=== PATIENT | female | born 1955 | race Caucasian/White ===

== ENCOUNTER 2016-09-12 07:28 | Day surgery (SDC) | payer BC ==
[2016-09-08 12:55] VITALS: BMI 22.2
[~2016-09-12 07:28] MED LIST: LACTATED RINGERS 1,000 ML IV SCH; LIDOCAINE 1% 20 ML VIAL (10MG/ML) FOR IV START INTRADERMA PRN
[2016-09-12 07:52] VITALS: TEMP 97.4
[2016-09-12] MEDS ORDERED: LIDOCAINE 1% 20 ML VIAL (10MG/ML) FOR IV START INTRADERMA ONE (08:03)
[2016-09-12] MEDS ORDERED: LIDOCAINE 1% INJ 10MG/ML (20 ML MDV) ONE (08:15)
[2016-09-12] MEDS ORDERED: PROPOFOL 10 MG/ML 20 ML VIAL IV ONE (08:15)
--- NOTE | 2016-09-12 08:42 | P.PCN ---
Date of Procedure: 09/12/16 Preoperative Diagnosis: Crampy abdominal pain , loose stools Postoperative Diagnosis: Tortuous redundant bowel, sigmoid diverticuli, beginning of internal hemorrhoids Procedure(s) Performed: Colonoscopy Anesthesia: MAC Surgeon: Vane Allred Estimated Blood Loss (ml): 0 IV fluids (ml): 650 Pathology: none sent Condition: stable Disposition: PACU Indications for Procedure: Crampy abdominal pain with some loose stools Operative Findings: Extremely tortuous redundant bowel, deep diverticuli, internal hemorrhoids Description of Procedure: Patient was taken to the endoscopy suite and following sedation rectal exam was performed. Patient was noted to have good sphincter tone no masses. Colonoscope was passed through the anus into the rectum. Was passed into the sigmoid colon which was was extremely tortuous and redundant. Was then passed up to the splenic flexure transverse colon hepatic flexure right colon down to the area of the cecum. Circumferential observation mucosa in the cecum did not reveal any inflammation or lesions of concern. Stool of the the area was irrigated and aspirated for culture stable obtained. The scope was withdrawn no lesions of concern were noted in the right colon. No lesions of concern in the transverse colon. The Bowel was noted to be very tortuous and redundant particularly in the sigmoid colon diverticuli were identified. The scope was brought down to the rectum where it was retroflexed internal hemorrhoids identified. Approximately 6 minutes were taken to withdraw the scope from the cecum to the rectum. Impression/plan: 1. Tortuous redundant bowel 2. Diverticuli 3. Internal hemorrhoids Plan: 1. Await results of stool cultures 2. Conservative management of diverticuli and internal hemorrhoids 3. Most likely repeat scope 7-10 years
--- NOTE | 2016-09-12 08:43 | P.DS ---
Providers Attending physician: Vane Allred Primary care physician: Danny Pineda Plan - Discharge Summary Discharge Medication List Atorvastatin [Lipitor] 20 mg PO HS 09/08/16 [History] Cholecalciferol [Vitamin D3] 2,000 unit PO DAILY 09/08/16 [History] Citalopram Hydrobromide [CeleXA] 40 mg PO DAILY 09/08/16 [History] Levothyroxine Sodium [Synthroid] 75 mcg PO DAILY 09/08/16 [History] Follow up Appointment(s)/Referral(s): Vane Allred MD [STAFF PHYSICIAN] - 1 Week Activity/Diet/Wound Care/Special Instructions: Diverticular diet Discharge Disposition: HOME SELF-CARE
[2016-09-12 09:28] VITALS: RESP 16
[2016-09-12 09:45] VITALS: BP 125/68; PULSE 94
== END 2016-09-12 10:01 | disposition home or self-care (01) ==
LOC: ORWHC2ENDO 07:28
PROVIDERS: ATTEND Surgery
DX: K57.30 Diverticulosis of large intestine without perforation or abscess without bleeding (principal); Q43.8 Other specified congenital malformations of intestine; K64.8 Other hemorrhoids; E78.5 Hyperlipidemia, unspecified; E07.9 Disorder of thyroid, unspecified; F32.9 Major depressive disorder, single episode, unspecified; Z79.899 Other long term (current) drug therapy; Z88.0 Allergy status to penicillin
CPT/HCPCS: 87045; 87046; 45378; J2001; J2704; 99153

== ENCOUNTER → 2017-04-06 | Outpatient (CLI) | payer BC ==
--- NOTE | 2017-04-09 07:26 | MM ---
Reason for exam: additional evaluation requested from prior study. Last mammogram was performed 1 year and 4 months ago. History: Patient is postmenopausal and had first child at age 32. Family history of breast cancer in sister at age 60. Took estrogen for 5 years beginning at age 45. Physical Findings: Nurse did not find any significant physical abnormalities on exam. MG 3D Diag Mammo W/Cad CONNOR Bilateral CC and MLO view(s) were taken. Prior study comparison: November 29, 2015, left breast MG 3d work up w/cad LT. November 29, 2015, left breast US breast workup limited LT. November 15, 2015, bilateral MG screening mammo w CAD. The breast tissue is heterogeneously dense. This may lower the sensitivity of mammography. Finding: There are typically benign round calcifications in both breasts. There is a chronic nodularity in the left breast. There is no discrete abnormality. These results were verbally communicated with the patient and result sheet given to the patient on 04/06/17. ASSESSMENT: Benign, BI-RAD 2 RECOMMENDATION: Routine screening mammogram of both breasts in 1 year.
== END | disposition home or self-care (01) ==
LOC: RADMAMWWP 10:26
PROVIDERS: ATTEND Family Medicine
DX: N60.11 Diffuse cystic mastopathy of right breast (principal)
CPT/HCPCS: G0204; G0279

== ENCOUNTER 2017-10-29 14:41 | Emergency (ER) | payer BC ==
[2017-10-29 15:00] VITALS: TEMP 98.2
[2017-10-29 15:53] LABS: Basophils # (A) 0.1 k/uL (0-0.2); Basophils % (A) 1 %; Eosinophils # (A) 0.1 k/uL (0-0.7); Eosinophils % (A) 1 %; HCT 43.9 % (34.0-46.0); Lymphocytes # (A) 1.2 k/uL (1.0-4.8); Lymphocytes % (A) 15 %; MCH 31.2 pg (25.0-35.0); MCHC 34.1 g/dL (31.0-37.0); MCV 91.6 fL (80.0-100.0); Mean Platelet Volume 7.2; Monocytes # (A) 0.2 k/uL (0-1.0); Monocytes % (A) 3 %; Neutrophils # (A) 6.1 k/uL (1.3-7.7); Neutrophils % (A) 79 %; Platelet Count 287 k/uL (150-450); RBC 4.79 m/uL (3.80-5.40); RDW 12.5 % (11.5-15.5); WBC 7.7 k/uL (3.8-10.6)
[2017-10-29 16:02] LABS: ALT 21 U/L (9-52); AST 20 U/L (14-36); Albumin 4.6 g/dL (3.5-5.0); Alkaline Phosphatase 96 U/L (38-126); Anion Gap 11 mmol/L; Blood Urea Nitrogen 17 mg/dL (7-17); Calcium 9.8 mg/dL (8.4-10.2); Carbon Dioxide 27 mmol/L (22-30); Chloride 105 mmol/L (98-107); Glucose 124 mg/dL (74-99); Potassium 4.9 mmol/L (3.5-5.1); Sodium 143 mmol/L (137-145); Total Bilirubin 0.3 mg/dL (0.2-1.3); Total Protein 7.6 g/dL (6.3-8.2)
[2017-10-29] MEDS ORDERED: MECLIZINE 12.5 MG TAB PO STA (16:29)
[2017-10-29] MEDS ORDERED: SODIUM CHLORIDE 0.9% 1,000 ML IV STA (16:29)
--- NOTE | 2017-10-29 16:38 | ED ---
General Adult HPI - General Chief complaint: Dizziness Stated complaint: Dizziness Time Seen by Provider: 10/29/17 16:11 Source: patient, RN notes reviewed Mode of arrival: ambulatory Limitations: no limitations - History of Present Illness Initial comments: 62-year-old female presents to the emergency department with a chief complaint of dizziness. She states that she got a couch and she felt very dizzy like the world spinning around her. She states she does sit down group she got up again and felt the same way. She states that she does not feel like she is going to pass out She felt like she was wobbly. She states if she sits still she can get it to calm down but then it will go worse. There is been some nausea without vomiting. She denies any chest pain or shortness of breath. She denies any falls traumas or injuries. Family history of this in the past. They were concerned due to her continued dizziness. Was not improving so she thought that she should be seen.Patient denies any recent fever, chills, shortness of breath, chest pain, back pain, abdominal pain, nausea vomiting, numbness or tingling, dysuria or hematuria, constipation or diarrhea, headaches or visual changes, or any other current symptoms. - Related Data Home Medications Medication Instructions Recorded Confirmed Atorvastatin [Lipitor] 20 mg PO HS 09/08/16 10/29/17 Cholecalciferol [Vitamin D3] 2,000 unit PO DAILY 09/08/16 10/29/17 Citalopram Hydrobromide [CeleXA] 40 mg PO DAILY 09/08/16 10/29/17 Levothyroxine Sodium [Synthroid] 75 mcg PO DAILY 09/08/16 10/29/17 Previous Rx's Medication Instructions Recorded Meclizine [Antivert] 12.5 mg PO Q6H #20 tablet 10/29/17 Sulfamethox-Tmp 800-160Mg [Bactrim 1 each PO Q12HR #14 tab 10/29/17 DS 800-160 mg] Allergies Allergy/AdvReac Type Severity Reaction Status Date / Time amoxicillin [From Augmentin] Allergy Rash/Hives Verified 10/29/17 16:33 clavulanic acid Allergy Rash/Hives Verified 10/29/17 16:33 [From Augmentin] Review of Systems ROS Statement: Those systems with pertinent positive or pertinent negative responses have been documented in the HPI. ROS Other: All systems not noted in ROS Statement are negative. Past Medical History Past Medical History: Hyperlipidemia, Thyroid Disorder History of Any Multi-Drug Resistant Organisms: None Reported Past Surgical History: Section Additional Past Surgical History / Comment(s): colonoscopy Past Anesthesia/Blood Transfusion Reactions: No Reported Reaction Past Psychological History: Depression Smoking Status: Current every day smoker Past Alcohol Use History: Rare Past Drug Use History: None Reported - Past Family History Sister(s) Family Medical History: Cancer General Exam Limitations: no limitations General appearance: alert, in no apparent distress ENT exam: Present: normal exam, mucous membranes moist Neck exam: Present: normal inspection. Absent: tenderness, meningismus, lymphadenopathy Respiratory exam: Present: normal lung sounds bilaterally. Absent: respiratory distress, wheezes, rales, rhonchi, stridor Cardiovascular Exam: Present: regular rate, normal rhythm, normal heart sounds. Absent: systolic murmur, diastolic murmur, rubs, gallop, clicks Back exam: Present: normal inspection Neurological exam: Present: alert, oriented X3, CN II-XII intact, reflexes normal, other (No ataxia, negative pronator drift). Absent: motor sensory deficit Psychiatric exam: Present: normal affect, normal mood Skin exam: Present: warm, dry, intact, normal color. Absent: rash Course Vital Signs 10/29/17 10/29/17 10/29/17 14:58 17:03 17:14 Temperature 98.2 F Pulse Rate 69 78 Pulse Rate [ 86 Rn Outpatient Surgery ] Respiratory 18 16 18 Rate Blood Pressure 93/60 132/70 Blood Pressure 129/72 [Sitting] Blood Pressure 146/79 [Standing] Blood Pressure 132/73 [Supine] O2 Sat by Pulse 97 97 Oximetry Medical Decision Making - Medical Decision Making 62-year-old female presents for dizziness. At this time due to the patient's vertigo symptoms along with a pansinusitis on CT most likely due due to vertigo. We will continue patient on Antivert as well as start her on antibiotic. We did discuss follow-up with her doctor we discussed return parameters all questions. Patient stated that she understood and she is agreement this plan. All questions have been answered. She will be discharged. - Lab Data Result diagrams: 10/29/17 15:35 10/29/17 15:35 Lab Results 10/29/17 10/29/1710/29/18 Range/Units 15:35 15:35 15:35 WBC 7.7 (3.8-10.6) k/uL RBC 4.79 (3.80-5.40) m/uL Hgb 15.0 (11.4-16.0) gm/dL Hct 43.9 (34.0-46.0) % MCV 91.6 (80.0-100.0) fL MCH 31.2 (25.0-35.0) pg MCHC 34.1 (31.0-37.0) g/dL RDW 12.5 (11.5-15.5) % Plt Count 287 (150-450) k/uL Neutrophils % 79 % Lymphocytes % 15 % Monocytes % 3 % Eosinophils % 1 % Basophils % 1 % Neutrophils # 6.1 (1.3-7.7) k/uL Lymphocytes # 1.2 (1.0-4.8) k/uL Monocytes # 0.2 (0-1.0) k/uL Eosinophils # 0.1 (0-0.7) k/uL Basophils # 0.1 (0-0.2) k/uL Sodium 143 (137-145) mmol/L Potassium 4.9 (3.5-5.1) mmol/L Chloride 105 (98-107) mmol/L Carbon Dioxide 27 (22-30) mmol/L Anion Gap 11 mmol/L BUN 17 (7-17) mg/dL Creatinine 0.80 (0.52-1.04) mg/dL Est GFR (MDRD) Af Amer >60 (>60 ml/min/1.73 sqM) Est GFR (MDRD) Non-Af >60 (>60 ml/min/1.73 sqM) Glucose 124 H (74-99) mg/dL Calcium 9.8 (8.4-10.2) mg/dL Total Bilirubin 0.3 (0.2-1.3) mg/dL AST 20 (14-36) U/L ALT 21 (9-52) U/L Alkaline Phosphatase 96 (38-126) U/L Troponin I <0.012 (0.000-0.034) ng/mL Total Protein 7.6 (6.3-8.2) g/dL Albumin 4.6 (3.5-5.0) g/dL Urine Color Urine Appearance (Clear) Urine pH (5.0-8.0) Ur Specific [place] (1.001-1.035) Urine Protein (Negative) Urine Glucose (UA) (Negative) Urine Ketones (Negative) Urine Blood (Negative) Urine Nitrite (Negative) Urine Bilirubin (Negative) Urine Urobilinogen (<2.0) mg/dL Ur Leukocyte Esterase (Negative) Urine RBC (0-5) /hpf Urine WBC (0-5) /hpf Ur Squamous Epith Cells (0-4) /hpf Amorphous Sediment (None) /hpf Hyaline Casts (0-2) /lpf Urine Mucus (None) /hpf 10/29/17 Range/Units 18:00 WBC (3.8-10.6) k/uL RBC (3.80-5.40) m/uL Hgb (11.4-16.0) gm/dL Hct (34.0-46.0) % MCV (80.0-100.0) fL MCH (25.0-35.0) pg MCHC (31.0-37.0) g/dL RDW (11.5-15.5) % Plt Count (150-450) k/uL Neutrophils % % Lymphocytes % % Monocytes % % Eosinophils % % Basophils % % Neutrophils # (1.3-7.7) k/uL Lymphocytes # (1.0-4.8) k/uL Monocytes # (0-1.0) k/uL Eosinophils # (0-0.7) k/uL Basophils # (0-0.2) k/uL Sodium (137-145) mmol/L Potassium (3.5-5.1) mmol/L Chloride (98-107) mmol/L Carbon Dioxide (22-30) mmol/L Anion Gap mmol/L BUN (7-17) mg/dL Creatinine (0.52-1.04) mg/dL Est GFR (MDRD) Af Amer (>60 ml/min/1.73 sqM) Est GFR (MDRD) Non-Af (>60 ml/min/1.73 sqM) Glucose (74-99) mg/dL Calcium (8.4-10.2) mg/dL Total Bilirubin (0.2-1.3) mg/dL AST (14-36) U/L ALT (9-52) U/L Alkaline Phosphatase (38-126) U/L Troponin I (0.000-0.034) ng/mL Total Protein (6.3-8.2) g/dL Albumin (3.5-5.0) g/dL Urine Color Yellow Urine Appearance Clear (Clear) Urine pH 7.0 (5.0-8.0) Ur Specific [place] 1.024 (1.001-1.035) Urine Protein Trace H (Negative) Urine Glucose (UA) Negative (Negative) Urine Ketones Negative (Negative) Urine Blood Negative (Negative) Urine Nitrite Negative (Negative) Urine Bilirubin Negative (Negative) Urine Urobilinogen 4.0 (<2.0) mg/dL Ur Leukocyte Esterase Trace H (Negative) Urine RBC 2 (0-5) /hpf Urine WBC 6 H (0-5) /hpf Ur Squamous Epith Cells 2 (0-4) /hpf Amorphous Sediment Rare H (None) /hpf Hyaline Casts 1 (0-2) /lpf Urine Mucus Few H (None) /hpf - Radiology Data Radiology results: report reviewed, image reviewed Disposition Clinical Impression: Acute pansinusitis, Vertigo Disposition: HOME SELF-CARE Condition: Stable Instructions: Vertigo (ED), Sinusitis (ED) Additional Instructions: Please use medication as discussed. Please follow up with family doctor if symptoms have not improved over the next two days. Please return to the emergency room if your symptoms increase or worsen or for any other concerns. Prescriptions: Meclizine [Antivert] 12.5 mg PO Q6H #20 tablet Sulfamethox-Tmp 800-160Mg [Bactrim DS 800-160 mg] 1 each PO Q12HR #14 tab Referrals: Danny Pineda MD [Primary Care Provider] - 1-2 days Time of Disposition: 18:32
--- NOTE | 2017-10-29 17:05 | CT ---
EXAMINATION TYPE: CT brain wo con DATE OF EXAM: 10/29/2017 COMPARISON: NONE HISTORY: Dizziness and headache for [address] DLP: 945.5 mGycm Automated exposure control for dose reduction was used. TECHNIQUE: CT scan of the head is performed without contrast. FINDINGS: There is no acute intracranial hemorrhage, mass effect, or midline shift identified. Dystrophic basal ganglia calcifications are seen on the right. The ventricles and sulci are symmetrically prominent compatible with age-related volume loss. The globes are intact. Mild mucosal thickening is seen withi n the sphenoid, maxillary, ethmoid, and frontal sinuses. Mastoid air cells are well aerated. Secretio ns are noted within the posterior nasopharynx. Incidental note is made of a partially empty sella tur cica. IMPRESSION: 1. No acute intracranial process. 2. Mild pansinusitis.
--- NOTE | 2017-10-29 17:07 | XR ---
EXAMINATION TYPE: XR chest 2V DATE OF EXAM: 10/29/2017 COMPARISON: 03/07/2013 HISTORY: Shortness of breath TECHNIQUE: Frontal and lateral views of the chest are obtained. FINDINGS: There is no focal air space opacity, pleural effusion, or pneumothorax seen. There is pul monary hyperinflation and flattening of the diaphragms compatible with underlying COPD. The cardiac s ilhouette size is within normal limits. The osseous structures are intact. Copious soft tissues par tially obscure the lung bases on the frontal view. IMPRESSION: No acute cardiopulmonary process. Radiographic sequela of COPD.
[2017-10-29 18:21] LABS: Amorphous Sediment,Urine Rare /hpf; Appearance,Urine Clear (Clear); Bilirubin,Urine Negative (Negative); Blood,Urine Negative (Negative); Color,Urine Yellow; Glucose,Urine (UA) Negative (Negative); Hyaline Casts,Urine 1 /lpf (0-2); Ketones,Urine Negative (Negative); Leukocyte Esterase,Urine Trace (Negative); Mucus,Urine Few /hpf; Protein,Urine Trace (Negative); RBC,Urine 2 /hpf (0-5); Specific Gravity,Urine 1.024 (1.001-1.035); Squamous Epithelial Cell,Urine 2 /hpf (0-4); WBC,Urine 6 /hpf (0-5)
[2017-10-29 19:06] VITALS: BP 153/72; PULSE 87; RESP 20
== END 2017-10-29 19:06 | disposition home or self-care (01) ==
LOC: EC 14:41
DX: J01.40 Acute pansinusitis, unspecified (principal); R42 Dizziness and giddiness; R11.0 Nausea; E78.5 Hyperlipidemia, unspecified; E07.9 Disorder of thyroid, unspecified; F32.9 Major depressive disorder, single episode, unspecified; F17.200 Nicotine dependence, unspecified, uncomplicated; Z79.899 Other long term (current) drug therapy; Z88.0 Allergy status to penicillin
CPT/HCPCS: 36415; 70450; 71046; 80053; 81001; 84484; 85025; 93005; 96360; 96361; 99284

== ENCOUNTER → 2018-04-25 | Outpatient (CLI) | payer BC, OTHER ==
--- NOTE | 2018-04-25 14:42 | MM ---
Reason for exam: screening (asymptomatic). Last mammogram was performed 1 year and 1 month ago. History: Patient is postmenopausal and had first child at age 32. Family history of breast cancer in sister at age 60. Took estrogen for 5 years beginning at age 45. Physical Findings: A clinical breast exam by your physician is recommended on an annual basis and results should be correlated with mammographic findings. MG 3D Screening Mammo W/Cad Bilateral CC and MLO view(s) were taken. Prior study comparison: April 06, 2017, bilateral MG 3d diag mammo w/cad CONNOR. November 29, 2015, left breast MG 3d work up w/cad LT. The breast tissue is heterogeneously dense. This may lower the sensitivity of mammography. There is chronic nodularity in the left breast. Posterior and central nodularity left MLO view appears more defined and incompletely disperses on 3D. ASSESSMENT: Incomplete: need additional imaging evaluation, BI-RAD 0 RECOMMENDATION: Special view mammogram of the left breast. If lesion persists on supplemental views, image directed ultrasound is recommended. [facility] will attempt to contact patient to return for supplemental views and ultrasound if indicated.
== END | disposition home or self-care (01) ==
LOC: RADMAMWWP 09:53
PROVIDERS: ATTEND Family Medicine
DX: Z12.31 Encounter for screening mammogram for malignant neoplasm of breast (principal)
CPT/HCPCS: 77063; 77067

== ENCOUNTER → 2018-05-08 | Outpatient (CLI) | payer BC, OTHER ==
--- NOTE | 2018-05-08 09:02 | MM ---
Reason for exam: additional evaluation requested from abnormal screening. Last mammogram was performed less than 1 month ago. History: Patient is postmenopausal and had first child at age 32. Family history of breast cancer in sister at age 60. Took estrogen for 5 years beginning at age 45. Physical Findings: Nurse did not find any significant physical abnormalities on exam. MG 3D Work Up W/Cad LT Spot compression CC, spot compression MLO, and ML view(s) were taken of the left breast. Prior study comparison: April 25, 2018, bilateral MG 3d screening mammo w/cad. April 06, 2017, bilateral MG 3d diag mammo w/cad CONNOR. The breast tissue is heterogeneously dense. This may lower the sensitivity of mammography. The questioned central posterior nodularity becomes less defined on additional view with an appearance similar to older priors. A single area of nodularity which becomes apparent on the lateral view is chronic, stable from 2012. 6 month follow up recommended. These results were verbally communicated with the patient and result sheet given to the patient on 05/08/18. ASSESSMENT: Probably benign, BI-RAD 3 RECOMMENDATION: Follow-up diagnostic mammogram of the left breast in 6 months.
== END | disposition home or self-care (01) ==
LOC: RADMAMWWP 07:00
PROVIDERS: ATTEND Family Medicine
DX: R92.8 Other abnormal and inconclusive findings on diagnostic imaging of breast (principal)
CPT/HCPCS: 77061; 77065

== ENCOUNTER → 2018-05-24 | Outpatient (CLI) | payer BC, OTHER ==
[2018-05-24 09:41] VITALS: BP 96/59; PULSE 77; RESP 14; TEMP 98.3; BMI 22.4
--- NOTE | 2018-05-24 10:03 | P.GSHP ---
History of Present Illness H&P Date: 05/24/18 The patient is a 63-year-old white female who had a routine screening mammogram on 8:30 . At that time it was recommended she have additional views of the left breast for some nodularity noted. In the this was performed on 91. In the left breast she was noted to have a question central posterior nodularity which became less defined on additional views with an appearance similar to older prior films. The recommendation is for repeat left breast mammogram and examination in 6 months time. The patient herself does not feel any lumps or masses in her breasts. She has no nipple discharge or skin changes. She does not report any infection or trauma to the breast. Family history: 1. sister: breast cancer at 60 2. mother: of dementia 3. father: of heart attack Hormonal History: menarche: 13 : 3, 2 living, 1 at 5: first : 32, breast fed: no menopause: 50 BCP: 10 years hormones: none Past surgical history: 1. Past medical history: None Social history: Smoke: One pack every other day ( since ) Alcohol: Every other month Drugs: Negative - Constitutional Constitutional: Denies chills, Denies fever - EENT Eyes: denies blurred vision, denies pain Ears: deny: decreased hearing, tinnitus Ears, nose, mouth and throat: Denies headache, Denies sore throat - Breasts Breasts: bilateral: as per HPI - Cardiovascular Cardiovascular: Denies chest pain, Denies shortness of breath - Respiratory Comment: smoker - Gastrointestinal Gastrointestinal: Reports diarrhea - Genitourinary (Female) Genitourinary: Denies dysuria, Denies hematuria - Menstruation Menstruation: Reports postmenopausal - Musculoskeletal Musculoskeletal: Denies myalgias - Integumentary Integumentary: Denies pruritus, Denies rash - Neurological Neurological: Denies numbness, Denies weakness - Psychiatric Psychiatric: Reports depression, Denies anxiety - Endocrine Comment: hypothyroid Endocrine: Denies fatigue, Denies weight change - Hematologic/Lymphatic Comment: none - Allergic/Immunologic Allergic/Immunologic: Reports as per HPI Past Medical History Past Medical History: Hyperlipidemia, Thyroid Disorder History of Any Multi-Drug Resistant Organisms: None Reported Past Surgical History: Section Additional Past Surgical History / Comment(s): 1986. colonoscopy x2 Past Anesthesia/Blood Transfusion Reactions: No Reported Reaction Past Psychological History: Depression Smoking Status: Current every day smoker Past Alcohol Use History: Rare Additional Past Alcohol Use History / Comment(s): started smoking in 1972 Past Drug Use History: None Reported - Past Family History Sister(s) Family Medical History: Cancer Additional Family Medical History / Comment(s): breast Father Family Medical History: Hyperlipidemia, Myocardial Infarction (DE) Medications and Allergies Home Medications Medication Instructions Recorded Confirmed Type Atorvastatin [Lipitor] 20 mg PO HS 09/08/16 05/24/18 History Cholecalciferol [Vitamin D3] 2,000 unit PO DAILY 09/08/16 05/24/18 History Citalopram Hydrobromide [CeleXA] 40 mg PO DAILY 09/08/16 05/24/18 History Levothyroxine Sodium [Synthroid] 75 mcg PO DAILY 09/08/16 05/24/18 History Allergies Allergy/AdvReac Type Severity Reaction Status Date / Time amoxicillin [From Augmentin] Allergy Rash/Hives Verified 05/24/18 09:29 clavulanic acid Allergy Rash/Hives Verified 05/24/18 09:29 [From Augmentin] Surgical - Exam Vital Signs Temp Pulse Resp BP Pulse Ox 98.3 F 77 14 96/59 97 05/24/18 09:31 05/24/18 09:31 05/24/18 09:31 05/24/18 09:31 05/24/18 09:31 - General well developed, well nourished, no distress - Eyes normal ocular movement - ENT no hearing loss, no congestion - Neck no masses, trachea midline - Respiratory normal respiratory effort, clear to auscultation - Cardiovascular Rhythm: regular Heart Sounds: normal: S1, S2 - Abdomen Abdomen: soft, non tender, no guarding, no rigid, no rebound - Integumentary no abnormal pigmentation - Neurologic no disoriented, no combative - Musculoskeletal normal gait - Psychiatric oriented to time, oriented to person, oriented to place, speech is normal, memory intact Breast examination: Right breast: Multi-positional exam no dominant masses or nodules of concern Right axilla: No adenopathy of concern Left breast: Multi-positional exam no dominant masses or nodules of concern Left axilla: No adenopathy of concern Results Mammogram reports reviewed Assessment and Plan Assessment: Impression: 1. Mammographic abnormality left breast 2. Hypothyroidism 3. Depression 4. Hypercholesterolemia Plan: 1. Repeat left breast mammogram and physician exam in 6 months time 2. Medical management of medical problems Cc: Dr. Danny Pineda, cc: Kristian Red
== END | disposition home or self-care (01) ==
LOC: WWCWWP 09:11
PROVIDERS: ATTEND Surgery
DX: Z53.9 Procedure and treatment not carried out, unspecified reason (principal)

== ENCOUNTER → 2018-10-28 | Outpatient (CLI) | payer BC, OTHER ==
--- NOTE | 2018-10-28 10:59 | MM ---
Reason for exam: follow-up at short interval from prior study. Last mammogram was performed 6 months ago. History: Patient is postmenopausal and had first child at age 32. Family history of breast cancer in sister at age 60. Took estrogen for 5 years beginning at age 45. Physical Findings: Nurse did not find any significant physical abnormalities on exam. MG 3D Diag Mammo W/Cad LT CC, MLO, and XCCL view(s) were taken of the left breast. Prior study comparison: May 08, 2018, left breast MG 3d work up w/cad LT. April 25, 2018, bilateral MG 3d screening mammo w/cad. The breast tissue is heterogeneously dense. This may lower the sensitivity of mammography. No suspicious abnormality. The previously seen left superior asymmetries appear resolved on 3D and as fibroglandular tissue. These results were verbally communicated with the patient and result sheet given to the patient on 10/28/18. ASSESSMENT: Benign, BI-RAD 2 RECOMMENDATION: Return to routine screening mammogram schedule for both breasts. Back on schedule for March 2019.
== END | disposition home or self-care (01) ==
LOC: RADMAMWWP 08:09
PROVIDERS: ATTEND Surgery
DX: R92.8 Other abnormal and inconclusive findings on diagnostic imaging of breast (principal)
CPT/HCPCS: 77061; 77065

== ENCOUNTER → 2018-11-01 | Outpatient (CLI) | payer BC, OTHER ==
[2018-11-01 08:38] VITALS: BP 97/62; PULSE 77; RESP 18; TEMP 98; BMI 22.2
--- NOTE | 2018-11-01 09:05 | P.PN ---
Subjective Progress Note Date: 11/01/18 Principal diagnosis: repeat mammogram The patient is a 63-year-old white female who had a routine screening mammogram in March 2018. At that time was recommended she have a repeat left breast mammogram in 6 months time. There was a area of questionable nodularity in the central posterior region of the breast which became left defined and additional views in April 2018. The patient now has had 8 repeat left breast mammogram in October for 2018. The repeat mammogram is felt to be benign with heterogeneously dense breast tissue. The previously seen left superior asymmetries are resolved on 3-D x-rays and appears fibroglandular tissue. This is a BIRADS 2 and repeat bilateral mammogram in March 2019 is recommended. The patient denies any lumps or masses in her breasts. She does not complain of any breast pain. She is not having any abnormal nipple discharge or skin changes. Family history: 1. Sister breast cancer at 60 2. Mother: Dementia 3. Father: Heart attack Past surgical history: 1. Past medical history: Negative ROS: HEENT: Sores in her nose at times Lungs: Cardiovascular: Negative GI: Negative : Negative Musculoskeletal: Negative Psychiatric: Depression Objective - Vital Signs Vital signs: Vital Signs Temp 98.0 F 11/01/18 08:34 Pulse 77 11/01/18 08:34 Resp 18 11/01/18 08:34 BP 97/62 11/01/18 08:34 Pulse Ox 95 11/01/18 08:34 Intake & Output 10/31/18 11/01/18 11/01/18 18:59 06:59 18:59 Weight 51.71 kg - Exam BMI 22.3 - Constitutional General appearance: Present: average body habitus - EENT Eyes: Present: EOMI ENT: Present: hearing grossly normal - Neck Neck: Present: normal ROM - Respiratory Respiratory: - Cardiovascular Rhythm: regular Heart sounds: - Integumentary Integumentary: Present: normal turgor - Musculoskeletal Musculoskeletal: Present: gait normal - Psychiatric Psychiatric: Present: A&O x's 3, appropriate affect, intact judgment & insight - Additional findings Additional findings: breast exam: Right breast: Multiple positional exam no dominant masses or nodules of concern Right axilla: No adenopathy of concern Left breast: Multiple positional exam no dominant masses or nodules of concern Left axilla: No adenopathy of concern Assessment and Plan Assessment: Impression: 1. Fibrocystic breast changes 2. No radiographic or clinical evidence of breast cancer at this time 3. Family history of breast cancer 4. Nicotine dependence with probable COPD Plan: 1. Repeat bilateral mammogram in March with physician exam at that time 2. We've discussed stopping smoking and the patient will consider it at this time CC: Mekhi Red, Dr. Danny Pineda
== END | disposition home or self-care (01) ==
LOC: WWCWWP 08:22
PROVIDERS: ATTEND Surgery
DX: Z53.9 Procedure and treatment not carried out, unspecified reason (principal)

== ENCOUNTER → 2019-04-29 | Outpatient (CLI) | payer BC, OTHER ==
--- NOTE | 2019-04-30 09:54 | MM ---
Reason for exam: screening (asymptomatic). Last mammogram was performed 6 months ago. History: Patient is postmenopausal and had first child at age 32. Family history of breast cancer in sister at age 60. Took estrogen for 5 years beginning at age 45. Physical Findings: A clinical breast exam by your physician is recommended on an annual basis and results should be correlated with mammographic findings. MG 3D Screening Mammo W/Cad Bilateral CC and MLO view(s) were taken. Prior study comparison: October 28, 2018, left breast MG 3d diag mammo w/cad LT. May 08, 2018, left breast MG 3d work up w/cad LT. The breast tissue is heterogeneously dense. This may lower the sensitivity of mammography. No suspicious abnormality. No significant changes when compared with prior studies. ASSESSMENT: Negative, BI-RAD 1 RECOMMENDATION: Routine screening mammogram of both breasts in 1 year.
== END | disposition home or self-care (01) ==
LOC: RADMAMWWP 08:05
PROVIDERS: ATTEND Surgery
DX: Z12.31 Encounter for screening mammogram for malignant neoplasm of breast (principal)
CPT/HCPCS: 77063; 77067

== ENCOUNTER → 2019-05-08 | Outpatient (CLI) | payer BC, OTHER ==
[2019-05-08 08:41] VITALS: BP 118/75; PULSE 85; RESP 18; TEMP 98.1; BMI 22.0
--- NOTE | 2019-05-08 09:29 | P.PN ---
Subjective Progress Note Date: 05/08/19 July is a 63-year-old white female who presents for breast evaluation. She had a bilateral mammogram performed on 9318 which was benign BIRADS 1. The patient has no complaints about any lumps in her breast. She had been followed with a 6 month repeat left breast mammogram from March of 2018. In October 2018 this was felt to be benign and now in April 2019 bilateral mammogram is negative BIRADS 1. The patient does state that she has noted a recent skin changes in the right medial breast which is a small erythematous lesion. She is not complaining of any pain. She has no history of any trauma or any infection to the breast. Nipple discharge or skin changes. She drinks approximately 4 cups of coffee per day as well as drinks pop. She smokes approximately half a pack per day. Her smokes also. She states chocolate on occasion. He is not complaining of any breast pain. Family history: 1. Sister breast cancer at 60 2. Mother: Dementia 3. Father: Heart attack Past surgical history: 1. Past medical history: Negative ROS: HEENT: Sores in her nose at times sinus congestion Lungs: smoker Cardiovascular: Negative GI: Negative : Negative Musculoskeletal: Negative nervous: none allergies: as per HPI hematologic: none Psychiatric: Depression Objective - Vital Signs Vital signs: Vital Signs Temp 98.1 F 05/08/19 08:37 Pulse 85 05/08/19 08:37 Resp 18 05/08/19 08:37 BP 118/75 05/08/19 08:37 Pulse Ox 96 05/08/19 08:37 Intake & Output 05/07/19 05/08/19 05/08/19 18:59 06:59 18:59 Weight 51.256 kg - Exam BMI 22.1 - Constitutional General appearance: Present: average body habitus - EENT Eyes: Present: EOMI ENT: Present: hearing grossly normal - Neck Neck: Present: normal ROM - Respiratory Respiratory: bilateral: CTA - Cardiovascular Rhythm: regular Heart sounds: normal: S1, S2 - Gastrointestinal General gastrointestinal: Present: soft - Integumentary Integumentary Comment(s): small red lesion right medial breast - Musculoskeletal Musculoskeletal: Present: gait normal - Psychiatric Psychiatric: Present: A&O x's 3, appropriate affect, intact judgment & insight - Additional findings Additional findings: breast exam: Breasts: Multiple positional exam no dominant masses or nodules of concern, fibrocystic changes, small erythematous nodule right medial inner breast for which excision in the office has been recommended Right axilla: No adenopathy of concern Left breast: Multiple positional exam no dominant masses or nodules of concern Left axilla: No adenopathy of concern Assessment and Plan Assessment: Impression: 1. Fibrocystic breast changes 2. No radiographic evidence or clinical evidence of breast cancer this time 3. Family history of breast cancer 4. Nicotine dependence with probable COPD 5. Skin lesion right breast 6. Depression Plan: 1. Repeat bilateral mammogram in 1 year with physician exam at that time 2. Excision of skin lesion 3. Have discussed stopping smoking Cc: Mami Red, Dr. Danny Pineda
== END | disposition home or self-care (01) ==
LOC: WWCWWP 08:22
PROVIDERS: ATTEND Surgery
DX: Z53.9 Procedure and treatment not carried out, unspecified reason (principal)

== ENCOUNTER 2020-03-12 19:48 | Emergency (ER) | payer BC, OTHER ==
[2020-03-12 20:02] VITALS: BP 159/91; PULSE 97; RESP 20; TEMP 98.3
--- NOTE | 2020-03-12 20:16 | ED ---
General Adult HPI - General Chief complaint: Extremity Injury, Upper Stated complaint: Rt shoulder injury Time Seen by Provider: 03/12/20 20:05 Source: patient Mode of arrival: ambulatory Limitations: no limitations - History of Present Illness Initial comments: Dictation was produced using [employer] dictation software. please excuse any grammatical, word or spelling errors. This patient was cared for during a federal and state declared state of emergency secondary to Covid 19 Chief Complaint: 64-year-old female presents with right shoulder pain. History of Present Illness: 64-year-old female she works at a [employer] office. Patient states she was walking dog when the dog abruptly ran causing her to hurt her arm. Patient states that after that jolted she felt an intense pain in her right anterior shoulder. Patient states she has pain with various movements. Denies any history of injury to the shoulder. No numbness and paresthesias to the distal extremity The ROS documented in this emergency department record has been reviewed and confirmed by me. Those systems with pertinent positive or negative responses have been documented in the HPI. All other systems are other negative and/or noncontributory. PHYSICAL EXAM: General Impression: Alert and oriented x3, not in acute distress HEENT: Normocephalic atraumatic, extra-ocular movements intact, pupils equal and reactive to light bilaterally, mucous membranes moist. Cardiovascular: Heart regular rate and rhythm Chest: Able to complete full sentences, no retractions, no tachypnea Abdomen: abdomen soft, non-tender, non-distended, no organomegaly Musculoskeletal: Pulses present and equal in all extremities, no peripheral edema Right shoulder: Tenderness over the right anterior acromioclavicular joint, active and passive range of motion intact. There is some pain with passive range of motion. Motor: no focal deficits noted Neurological: CN II-XII grossly intact, no focal motor or sensory deficits noted Skin: Intact with no visualized rashes Psych: Normal affect and mood ED course: 64-year-old female presents with right shoulder strain. Vital signs upon arrival are within acceptable limits.X-ray shows acromial clavicular joint separation. Of the right shoulder. Patient placed in sling. She is given referral to outpatient orthopedic surgery. Patient given Tylenol No. 3 starter packs. - Related Data Home Medications Medication Instructions Recorded Confirmed Atorvastatin [Lipitor] 20 mg PO DAILY 09/08/16 03/12/20 Citalopram Hydrobromide [CeleXA] 40 mg PO QAM 09/08/16 03/12/20 Levothyroxine Sodium [Synthroid] 75 mcg PO QAM 09/08/16 03/12/20 Ibuprofen [Advil] 400 mg PO ONCE PRN 03/12/20 03/12/20 Allergies Allergy/AdvReac Type Severity Reaction Status Date / Time amoxicillin [From Augmentin] Allergy Rash/Hives Verified 03/12/20 21:05 clavulanic acid Allergy Rash/Hives Verified 03/12/20 21:05 [From Augmentin] Review of Systems ROS Statement: Those systems with pertinent positive or pertinent negative responses have been documented in the HPI. ROS Other: All systems not noted in ROS Statement are negative. Past Medical History Past Medical History: Hyperlipidemia, Thyroid Disorder History of Any Multi-Drug Resistant Organisms: None Reported Past Surgical History: Section Additional Past Surgical History / Comment(s): 1986. colonoscopy x2 Past Anesthesia/Blood Transfusion Reactions: No Reported Reaction Past Psychological History: Depression Smoking Status: Current every day smoker Past Alcohol Use History: Rare Past Drug Use History: None Reported - Past Family History Sister(s) Family Medical History: Cancer Additional Family Medical History / Comment(s): breast Father Family Medical History: Hyperlipidemia, Myocardial Infarction (NE) General Exam Limitations: no limitations Course Vital Signs 03/12/20 20:00 Temperature 98.3 F Pulse Rate 97 Respiratory 20 Rate Blood Pressure 159/91 O2 Sat by Pulse 97 Oximetry Disposition Clinical Impression: Acromioclavicular joint separation Disposition: HOME SELF-CARE Condition: Good Instructions (If sedation given, give patient instructions): Acromioclavicular Separation (ED) Is patient prescribed a controlled substance at d/c from ED?: No Referrals: Adi Foreman MD [STAFF PHYSICIAN] - 1-2 days Time of Disposition: 21:13
--- NOTE | 2020-03-12 21:10 | XR ---
EXAMINATION TYPE: XR shoulder complete RT DATE OF EXAM: 03/12/2020 COMPARISON: NONE HISTORY: Shoulder pain TECHNIQUE: 3 views FINDINGS: There is some malalignment at the AC joint of 5 mm. I see no fracture nor dislocation. Carlitos ohumeral joint is anatomic. IMPRESSION: Malalignment at the AC joint could relate to ligamentous tear. No fracture seen.
[2020-03-12] MEDS ORDERED: ACET/COD 300 MG/30 MG STARTER PACK 6 TAB BTL PO STA (21:14)
== END 2020-03-12 21:28 | disposition home or self-care (01) ==
LOC: EC 19:48
DX: S43.101A Unspecified dislocation of right acromioclavicular joint, initial encounter (principal); E78.5 Hyperlipidemia, unspecified; E07.9 Disorder of thyroid, unspecified; F32.9 Major depressive disorder, single episode, unspecified; F17.200 Nicotine dependence, unspecified, uncomplicated; Z79.890 Hormone replacement therapy; Z79.899 Other long term (current) drug therapy; Z88.0 Allergy status to penicillin; Z88.1 Allergy status to other antibiotic agents; X58.XXXA Exposure to other specified factors, initial encounter; Y93.K1 Activity, walking an animal
CPT/HCPCS: 99283

== ENCOUNTER → 2020-06-14 | Outpatient (CLI) | payer MEDICARE, BC, OTHER ==
--- NOTE | 2020-06-14 13:27 | CT ---
EXAMINATION TYPE: CT brain wo con DATE OF EXAM: 06/14/2020 HISTORY: Syncopal episode with collapse CT DLP: 981 mGycm. Automated Exposure Control for Dose Reduction was Utilized. TECHNIQUE: CT scan of the head is performed without contrast. COMPARISON: Brain 10/29/2017 FINDINGS: There is no acute intracranial hemorrhage, midline shift, or mass effect identified. Brain parenchyma appears normal. The ventricles, sulci, and cisterns are normal in size and configuration. No extra-axial fluid collection. Bones and extracranial soft tissues are intact. The globes are gross ly symmetric. Visualized sinuses and mastoid air cells are clear. IMPRESSION: No acute intracranial hemorrhage, midline shift, or mass effect.
--- NOTE | 2020-06-14 13:44 | P.STRESS ---
- Stress Test Note Stress Test Results/Findings: Exam Performed: stress echo exercise Exam Date: 06/14/20 Reason for Exam: SYNCOPE Height: 5 ft Weight: 108 kg Protocol: STRESS ECHO Stage: III Duration of Exercise: 7 Resting Heart Rate: 80 Resting Blood Pressure: 103/57 Maximum Achieved Heart Rate: 150 Maximum Achieved Blood Pressure: 166/63 85% PMHR: 96 100% PMHR: 155 METS: Technologist Comment: Stress Test Results/Findings: Patient underwent exercise stress echo with a Osmani protocol treadmill stress test. Patient exercised into Stage 3 for a total of 7 minutes. Patient's maximum heart rate was 150 which represented 96% age-predicted maximum heart rate. Stress EKG portion: At baseline patient's EKG showed normal sinus rhythm, normal axis, nonspecific T-wave inversion in aVR and V1. At peak exercise, EKG showed nondiagnostic 0.[address] depressions. Stress echo portion: 2-D echocardiogram was performed in the parasternal long, personal short, apical 2 and apical four-chamber views at rest, peak exercise and in recovery. At baseline, echocardiogram showed left ventricular ejection fraction 55% without wall motion abnormalities. With peak exercise, echocardiogram shows improvement in left ventricular ejection fraction, increase contractility, decrease in left ventricular dimension without wall motion abnormalities consistent with a normal response to exercise. Conclusions: 1. Normal EKG and echo response to exercise without evidence of inducible ischemia. 2. Fair exercise capacity.
== END | disposition home or self-care (01) ==
LOC: RADCTMAIN 08:29
PROVIDERS: ATTEND Family Medicine
DX: R55 Syncope and collapse (principal)
CPT/HCPCS: 70450; 93351

== ENCOUNTER → 2020-08-18 | Outpatient (CLI) | payer BC, OTHER ==
--- NOTE | 2020-08-18 12:18 | BD ---
EXAMINATION TYPE: Axial Bone Density DATE OF EXAM: 08/18/2020 COMPARISON: NONE CLINICAL HISTORY: Height: 5 FT Weight: 110 FRAX RISK QUESTIONS: Alcohol (3 or more units per day): NO Family History (Parent hip fracture): NO Glucocorticoids (More than 3mos): NO (Ex: prednisone, prednisolone, methylprednisolone, dexamethasone, and hydrocortisone). History of Fracture in Adulthood: YES Secondary Osteoporosis: 1. Type 1 Diabetes: NO 2. Hyperthyroidism: NO 3. Menopause before 45: AGE 45 4. Malnutrition: NO 5. Chronic liver disease: NO Rheumatoid Arthritis: NO Current Tobacco Use: YES RISK FACTORS HISTORY OF: Family History of Osteoporosis: NO Active: MODERATE Diet low in dairy products/other sources of calcium: NO Postmenopausal woman: AGE 45 Take estrogen and/or progesterone medications: TOOK HRT FROM AGE [age] NONE NOW Lost more than 2 inches in height since high school: NO MEDICATIONS: Thyroid Medications: YES Which medication: LEVOTHYROXINE How Long: APPROX 4 YEARS Additional Medications: LEVOTHYROXINE, CELEXA, ATORVASTATIN Additional History: EXAM MEASUREMENTS: Bone mineral densitometry was performed using the [employer]. Bone mineral density as measured about the Lumbar spine is: ----- L1-L4(G/cm2): 1.084 T Score Values are as follows: ----- L2: -0.6 ----- L3: -0.6 ----- L4: -1.8 ----- L1-L4: -0.8 Bone mineral density has: DECREASED -7.5 % since study of: 2015 Bone mineral density about the R hip (g/cm2): 0.831 Bone mineral density about the L hip (g/cm2): 0.862 T Score values are as follows: -----R Neck: -1.5 -----L Neck: -1.3 -----R Total: -1.0 -----L Total: -0.5 Bone mineral density has: DECREASED -5.3 % since study of: 2016 IMPRESSION: No evidence for osteoporosis or osteopenia. NOTE: T-SCORE=SD OF THE YOUNG ADULT MEAN.
--- NOTE | 2020-08-23 09:00 | MM ---
Reason for exam: screening (asymptomatic). Last mammogram was performed 1 year and 4 months ago. History: Patient is postmenopausal and had first child at age 32. Family history of breast cancer in sister at age 60. Took estrogen for 5 years beginning at age 45. Physical Findings: A clinical breast exam by your physician is recommended on an annual basis and results should be correlated with mammographic findings. MG 3D Screening Mammo W/Cad Bilateral CC and MLO view(s) were taken. Prior study comparison: April 29, 2019, bilateral MG 3d screening mammo w/cad. October 28, 2018, left breast MG 3d diag mammo w/cad LT. The breast tissue is heterogeneously dense. This may lower the sensitivity of mammography. There is chronic nodularity bilaterally. No significant changes when compared with prior studies. ASSESSMENT: Benign, BI-RAD 2 RECOMMENDATION: Routine screening mammogram of both breasts in 1 year.
== END | disposition home or self-care (01) ==
LOC: RADMAMWWP 09:15
PROVIDERS: ATTEND Nurse Practitioner Family
DX: Z12.31 Encounter for screening mammogram for malignant neoplasm of breast (principal); Z78.0 Asymptomatic menopausal state
CPT/HCPCS: 77063; 77067; 77080

== ENCOUNTER → 2020-09-20 | Outpatient (CLI) | payer MEDICARE, BC, OTHER ==
--- NOTE | 2020-09-20 16:59 | US ---
EXAMINATION TYPE: US carotid duplex BILAT DATE OF EXAM: 09/20/2020 COMPARISON: NONE CLINICAL HISTORY: 65-year-old female R55 Syncope and collapse. TECHNIQUE: Carotid duplex ultrasound examination. Indirect Doppler criteria was utilized. FINDINGS: EXAM MEASUREMENTS: RIGHT: Peak Systolic Velocity (PSV) cm/sec ----- Right CCA: 63.4 ----- Right ICA: 111.3 ----- Right ECA: 101.1 ICA/CCA ratio: 1.7 RIGHT: End Diastole cm/sec ----- Right CCA: 25.6 ----- Right ICA: 44.5 ----- Right ECA: 18.3 LEFT: Peak Systolic Velocity (PSV) cm/sec ----- Left CCA: 79.3 ----- Left ICA: 102.6 ----- Left ECA: 57.5 ICA/CCA ratio: 1.3 LEFT: End Diastole cm/sec ----- Left CCA: 24.1 ----- Left ICA: 40.1 ----- Left ECA: 9.6 VERTEBRALS (direction of flow): Right Vertebral: Antegrade Left Vertebral: Antegrade Rhythm: Normal [id number] atherosclerotic change at the right bifurcation. Tung [employer]er notes: No significant stenosis seen IMPRESSION: No hemodynamically significant internal carotid artery stenosis on either side. Criteria for Assigning % of Stenosis / Diameter reduction (Estimation based on the indirect measurements of the internal carotid artery velocities (ICA PSV). 1. Normal (no stenosis)=ICA PSV < 125 cm/s: ratio < 2.0: ICA EDV<40 cm/s. 2. Less than 50% stenosis=ICA PSV < 125 cm/s: ratio < 2.0: ICA EDV<40 cm/s. 3. 50 to 69% stenosis=ICA PSV of 125 to 230 cm/s: ration 2.0 ? 4.0: ICA EDV 40-100 cm/s. 4. Greater than 70% stenosis to near occlusion= ICA PSV > 230 cm/s: ratio > 4.0: ICA EDV > 100 cm/s. 5. Near occlusion= ICA PSV velocities may be low or undetectable: variable ratio and ICA EDV. 6. Total occlusion=unable to detect flow.
== END | disposition home or self-care (01) ==
LOC: RADUSWWP 14:02
PROVIDERS: ATTEND Family Medicine
DX: R55 Syncope and collapse (principal)
CPT/HCPCS: 93880

== ENCOUNTER → 2021-09-06 | Outpatient (CLI) | payer MEDICARE, BC, OTHER ==
--- NOTE | 2021-09-08 10:20 | MM ---
Reason for exam: screening (asymptomatic). Last mammogram was performed 1 year and 1 month ago. History: Patient is postmenopausal and had first child at age 32. Family history of breast cancer in sister at age 60. Took estrogen for 5 years beginning at age 45. Physical Findings: A clinical breast exam by your physician is recommended on an annual basis and results should be correlated with mammographic findings. MG 3D Screening Mammo W/Cad Bilateral CC and MLO view(s) were taken. Prior study comparison: August 18, 2020, bilateral MG 3d screening mammo w/cad. April 29, 2019, bilateral MG 3d screening mammo w/cad. The breast tissue is heterogeneously dense. This may lower the sensitivity of mammography. Benign appearing bilateral calcifications. There is chronic nodularity in the right breast. No significant changes when compared with prior studies. ASSESSMENT: Benign, BI-RAD 2 RECOMMENDATION: Routine screening mammogram of both breasts in 1 year.
== END | disposition home or self-care (01) ==
LOC: RADMAMWWP 10:15
PROVIDERS: ATTEND Family Medicine
DX: Z12.31 Encounter for screening mammogram for malignant neoplasm of breast (principal); Z78.0 Asymptomatic menopausal state; Z80.3 Family history of malignant neoplasm of breast
CPT/HCPCS: 77063; 77067

== ENCOUNTER → 2022-07-04 | Outpatient (CLI) | payer MEDICARE, BC, OTHER ==
--- NOTE | 2022-07-04 08:04 | US ---
EXAMINATION TYPE: US duplex aorta DATE OF EXAM: 07/04/2022 COMPARISON: NONE CLINICAL HISTORY: Z13.6; Z87.891. TECHNIQUE: Multiple sonographic images of the abdominal aorta are obtained. FINDINGS: EXAM MEASUREMENTS: Abdominal Aorta: Proximal: 2.0 x 2.1cm Mid: 1.6 x 1.4cm Distal: 1.5 x 1.6cm Right Iliac: 1.0 x 0.9cm Left Iliac: 1.1 x 1.0cm IMPRESSION: No abdominal aortic aneurysm.
--- NOTE | 2022-07-04 09:26 | CTL ---
EXAMINATION TYPE: CT Low Dose Lung DATE OF EXAM: 07/04/2022 7:57 AM CLINICAL INDICATION:Female, 67 years old with history of Z13.6; Z87.891; Personal history of tobacco use , history of tobacco use. COMPARISON: Baseline screening TECHNIQUE: Multiple axial non-contrast scans were obtained from approximately the lung apices through the upper abdomen. Coronal and sagittal reformatted images were obtained. Low dose technique was uti lized. CT DLP: 39.8 mGycm, Automated exposure control for dose reduction was used. CT Contrast: Contrast used: None Oral contrast used: None FINDINGS: ======== Lack of intravenous contrast and low dose technique limits the evaluation of the vascular and soft ti ssue structures. LUNGS: Nodules: RUL: None. RML: None. RLL: None. SRIDHAR: None. LLL: None. Mild paraseptal and centrilobular emphysema changes. Apical scarring noted bilaterally AIRWAYS: Unremarkable. LOWER NECK: Grossly unremarkable. LYMPH NODES: No grossly enlarged lymph nodes in the thorax. MEDIASTINUM?AND GERRY: Grossly unremarkable. HEART AND VASCULAR STRUCTURES: Grossly unremarkable. PLEURA & PERICARDIUM: Grossly unremarkable. CHEST WALL: Grossly unremarkable. UPPER ABDOMEN: Grossly unremarkable. BONES: Unremarkable. IMPRESSION: 1. No pulmonary nodules. 2. Mild emphysema changes. CT LUNG RAD AND CT CHEST RECOMMENDATION: Lung-Rad 1 Negative: Continue annual screening with LDCT in 12 months. S Modifier (other clinically significant findings): None Recommendation: Continue annual low dose lung cancer screening in 12 months. Lung-RADS Category: 2 Recommend smoking cessation (if current smoker), or continuation of smoking cessation (if prior smoke r). Annual screening for lung cancer with low-dose computed tomography is recommended in adults ages 55 to 77 years who have a 30 pack-year smoking history and currently smoke or have quit within the pa st 15 years. Screening should be discontinued once a person has not smoked for 15 years or develops a health problem that substantially limits life expectancy or the ability or willingness to have curat cynthia lung surgery.
== END | disposition home or self-care (01) ==
LOC: RADUSWWP 06:57
PROVIDERS: ATTEND Family Medicine
DX: Z12.2 Encounter for screening for malignant neoplasm of respiratory organs (principal); Z13.6 Encounter for screening for cardiovascular disorders; J43.9 Emphysema, unspecified; Z87.891 Personal history of nicotine dependence
CPT/HCPCS: 71271; 93979

== ENCOUNTER → 2022-09-11 | Outpatient (CLI) | payer MEDICARE, BC, OTHER ==
--- NOTE | 2022-09-11 10:43 | BD ---
EXAMINATION TYPE: Axial Bone Density DATE OF EXAM: 09/11/2022 COMPARISON: 08.18.2020 CLINICAL HISTORY: 67 years year old Female. ICD-10 CODE: Z78.0 MENOPAUSAL STATE Height: 59.2 Weight: 113 FRAX RISK QUESTIONS: Family History (Parent hip fracture): GRANDMOTHER WITH HIP FX History of Fracture in Adulthood: YES Secondary Osteoporosis: YES 3. Menopause before 45: AT 45 Current Tobacco Use: YES RISK FACTORS HISTORY OF: HX OF RT FOOT FX, RT SHOULDER, SCAPULA, CLAVICLE FXs AN ADULT Family History of Osteoporosis: YES, GRANDMOTHER WITH HIP FX Diet low in dairy products/other sources of calcium: YES Postmenopausal woman: AT 45...HORMONES FOR 5 YRS, NONE NOW Lost more than 2 inches in height since high school: YES Hyperparathyroidism: NO Adrenal Insufficiency: NO MEDICATIONS: Thyroid Medications: YES SYNTHROID FOR ABOUT 9 YRS Additional Medications: CELEXA, STATIN FOR CHOLESTEROL, VIT D, ASPIRIN, MOTRIN Additional History: ANXIETY, CHOLESTEROL, SMOKER... EXAM MEASUREMENTS: Bone mineral densitometry was performed using the [employer] System. Bone mineral density as measured about the Lumbar spine is: ----- L1-L4(G/cm2): 1.075 T Score Values are as follows: ----- L1: -0.3 ----- L2: -1.0 ----- L3: -1.0 ----- L4: -1.2 ----- L1-L4: -0.9 Bone mineral density has: Decreased -0.8% since study of: 08.18.2020 Bone mineral density about the R hip (g/cm2): 0.889 Bone mineral density about the L hip (g/cm2): 1.017 T Score values are as follows: -----R Neck: -1.4 -----L Neck: -0.5 -----R Total: -0.9 -----L Total: 0.1 Bone mineral density has: Increased 4.5% since study of: 08.18.2020 FRAX%s: The graph provided illustrates a 14.5% chance for a major osteoporotic fx and a 2.9% chance f or the hips probability for fx in 10 years time. IMPRESSION: Osteopenia (T Score between -2.5 and -1). There is slightly increased risk of fracture and the patient may be considered for treatment. Re-Screen 2-5 years. NOTE: T-SCORE=SD OF THE YOUNG ADULT MEAN.
--- NOTE | 2022-09-12 09:07 | MM ---
Reason for Exam: Screening (asymptomatic). Last screening mammogram was performed 12 month(s) ago. Patient History: Menarche at age 12. First Full-Term at age 32. Late child-bearing (after 30). Postmenopausal. Estrogen for 5 years from age 45 until age 50. Sister had breast cancer, age 60. Risk Values: Christina 5 year model risk: 3.4%. NCI Lifetime model risk: 11.4%. Prior Study Comparison: 04/29/2019 Bilateral Screening Mammogram, [facility]. 08/18/2020 Bilateral Screening Mammogram, [facility]. 09/06/2021 Bilateral Screening Mammogram, [facility]. Tissue Density: The breast tissue is heterogeneously dense. This may lower the sensitivity of mammography. Findings: Analyzed By CAD. There is no suspicious group of microcalcifications or new suspicious mass in either breast. Benign-appearing bilateral calcifications. Chronic nodularity in the right breast. Overall Assessment: Benign, BI-RAD 2 Management: Screening Mammogram of both breasts in 1 year. A clinical breast exam by your physician is recommended on an annual basis and results should be correlated with mammographic findings. Electronically signed and approved by: Dre Johnson D.O.
== END | disposition home or self-care (01) ==
LOC: RADMAMWWP 09:21
PROVIDERS: ATTEND Family Medicine
DX: Z12.31 Encounter for screening mammogram for malignant neoplasm of breast (principal); M85.89 Other specified disorders of bone density and structure, multiple sites; Z78.0 Asymptomatic menopausal state; Z80.3 Family history of malignant neoplasm of breast
CPT/HCPCS: 77063; 77067; 77080

== ENCOUNTER → 2023-12-05 | Outpatient (CLI) | payer MEDICARE, BC, OTHER ==
--- NOTE | 2023-12-05 18:23 | CTL ---
EXAMINATION TYPE: CT Low Dose Lung DATE OF EXAM ORDERED: 12/05/2023 HISTORY: Nicotine dependence. Lung cancer screening CT DLP: 62.[address] CTDI: 1.76 mGy Automated exposure control for dose reduction was used. SCREENING VISIT: Subsequent COMPARISON: 07/04/2022 TECHNIQUE: Low dose computed tomography scan was performed through the chest at 1 mm thick sections a nd reconstructed images in the coronal plane at [address] DIAGNOSTIC QUALITY: Limited, but interpretable FINDINGS: LUNG NODULES: None. Apical thickening is present bilaterally and was present previously LUNGS: COPD: Severity: Mild Fibrosis: Severity: None Lymph nodes: None Other findings: None RIGHT PLEURAL SPACE: Effusion: None Calcification: None Thickening: None Pneumothorax: None LEFT PLEURAL SPACE: Effusion: None Calcification: None Thickening: None Pneumothorax: None HEART: Heart Size: Normal Coronary calcification: None Pericardial effusion: None OTHER FINDINGS: Upper abdomen: Normal Bony thorax: Normal Supraclavicular region: Normal Other: Ascending thoracic aorta at the level the main pulmonary artery measures 2.8 cm. The main pul monary artery at the bifurcation measures 2.2 cm. IMPRESSION: No suspicious changes for primary or metastatic neoplasm. FOLLOW UP CT CHEST RECOMMENDATION: Follow-up low-dose CT chest one year CT LUNG RAD: Lung-Rad 2 Benign Appearance or Behavior
--- NOTE | 2023-12-06 09:19 | MM ---
Reason for Exam: Screening (asymptomatic). Last mammogram was performed 1 year(s) and 3 month(s) ago. Patient History: Menarche at age 12. First Full-Term at age 32. Late child-bearing (after 30). Postmenopausal. Estrogen for 5 years from age 45 until age 50. Sister had breast cancer, age 60. Risk Values: Christina 5 year model risk: 3.4%. Prior Study Comparison: 08/18/2020 Bilateral Screening Mammogram, [facility]. 09/06/2021 Bilateral Screening Mammogram, [facility]. 09/11/2022 Bilateral MG 3D screening mammo w/cad, [facility]. Tissue Density: The breasts are heterogeneously dense, which may obscure small masses. Findings: Analyzed By CAD. There is a 5 mm nodule in the central inner margin of the right breast which is increased in size from prior exam. Recommend spot compression views. No suspicious grouped calcifications. Benign-appearing calcifications. Overall Assessment: Incomplete: need additional imaging evaluation, BI-RAD 0 Management: Diagnostic Mammogram of the right breast. . Patient should continue monthly self-breast exams. A clinical breast exam by your physician is recommended on an annual basis. This exam should not preclude additional follow-up of suspicious palpable abnormalities. Note on Christina scores and lifetime risk: 1. A Christina score greater than 3% is considered moderate risk. If this is the case, consider specialist referral to assess eligibility for a risk reducing agent. 2. If overall lifetime risk for the development of breast cancer is 20% or higher, the patient may qualify for future screening with alternating mammogram and breast MRI. Electronically signed and approved by: Christopher Jacob M.D. Radiologis
== END | disposition home or self-care (01) ==
LOC: RADCTMAIN 13:36
PROVIDERS: ATTEND Family Medicine
DX: Z12.31 Encounter for screening mammogram for malignant neoplasm of breast (principal); Z12.2 Encounter for screening for malignant neoplasm of respiratory organs; F17.210 Nicotine dependence, cigarettes, uncomplicated
CPT/HCPCS: 71271; 77063; 77067

== ENCOUNTER → 2023-12-07 | Outpatient (CLI) | payer MEDICARE, BC, OTHER ==
--- NOTE | 2023-12-07 10:04 | MM ---
Reason for Exam: Additional evaluation requested from abnormal screening. Last screening mammogram was performed less than 1 month ago. Patient History: Menarche at age 12. First Full-Term at age 32. Late child-bearing (after 30). Postmenopausal. Estrogen for 5 years from age 45 until age 50. Sister had breast cancer, age 60. Risk Values: Christina 5 year model risk: 3.4%. NCI Lifetime model risk: 10.9%. Prior Study Comparison: 04/29/2019 Bilateral Screening Mammogram, [facility]. 08/18/2020 Bilateral Screening Mammogram, [facility]. 09/06/2021 Bilateral Screening Mammogram, [facility]. 09/11/2022 Bilateral MG 3D screening mammo w/cad, [facility]. 12/05/2023 Bilateral MG 3D screening mammo w/cad, [facility]. Tissue Density: Right: The breasts are heterogeneously dense, which may obscure small masses. Findings: Analyzed By CAD. At the approximate 3:00 location right breast 5 cm from the nipple there is a 5 mm nodule. Ultrasound is advised. Overall Assessment: Incomplete: need additional imaging evaluation, BI-RAD 0 Management: Diagnostic Breast Ultrasound of the right breast. . Results were given to the patient verbally at the time of exam. Patient should continue monthly self-breast exams. A clinical breast exam by your physician is recommended on an annual basis. This exam should not preclude additional follow-up of suspicious palpable abnormalities. Note on Christina scores and lifetime risk: 1. A Christina score greater than 3% is considered moderate risk. If this is the case, consider specialist referral to assess eligibility for a risk reducing agent. 2. If overall lifetime risk for the development of breast cancer is 20% or higher, the patient may qualify for future screening with alternating mammogram and breast MRI. Electronically signed and approved by: Kevin Moralez M.D. Radiologis
--- NOTE | 2023-12-07 10:23 | USB ---
Reason for Exam: Additional evaluation requested from abnormal screening. Patient History: Menarche at age 12. First Full-Term at age 32. Late child-bearing (after 30). Postmenopausal. Estrogen for 5 years from age 45 until age 50. Sister had breast cancer, age 60. Risk Values: Christina 5 year model risk: 3.4%. NCI Lifetime model risk: 10.9%. Technique: Method: Targeted. Prior Study Comparison: 09/06/2021 Bilateral Screening Mammogram, [facility]. 09/11/2022 Bilateral MG 3D screening mammo w/cad, [facility]. 12/05/2023 Bilateral MG 3D screening mammo w/cad, [facility]. Findings: The upper inner quadrant of the right breast, the axilla of the right breast and the retroareolar of the right breast were scanned. There is a 2 small to characterize 3 x 4 mm hypoechoic lesion right 1:00 position 5 cm from the nipple. No concerning solid masses identified.. Overall Assessment: Probably benign, BI-RAD 3 Management: Diagnostic Breast Ultrasound of the right breast in 6 months. A clinical breast exam by your physician is recommended on an annual basis and results should be correlated with mammographic findings. This exam should not preclude additional follow-up of suspicious palpable abnormalities. Results were given to the patient verbally at the time of exam. Electronically signed and approved by: Kevin Moralez M.D. Radiologis
== END | disposition home or self-care (01) ==
LOC: RADMAMWWP 09:37
PROVIDERS: ATTEND Family Medicine
DX: R92.8 Other abnormal and inconclusive findings on diagnostic imaging of breast (principal); Z78.0 Asymptomatic menopausal state; Z80.3 Family history of malignant neoplasm of breast
CPT/HCPCS: 77065; 76642; G0279; 77061

== ENCOUNTER → 2024-07-02 | Outpatient (CLI) | payer MEDICARE, BC, OTHER ==
--- NOTE | 2024-07-02 10:11 | USB ---
Reason for Exam: Follow-up at short interval from prior study. Patient History: Menarche at age 12. First Full-Term at age 32. Late child-bearing (after 30). Postmenopausal. Estrogen for 5 years from age 45 until age 50. Sister had breast cancer, age 60. Risk Values: Christina 5 year model risk: 3.5%. NCI Lifetime model risk: 10.5%. Technique: Method: Targeted. Prior Study Comparison: 09/11/2022 Bilateral MG 3D screening mammo w/cad, [facility]. 12/05/2023 Bilateral MG 3D screening mammo w/cad, [facility]. 12/07/2023 Right MG 3D work up w/cad RT, [facility]. Findings: The upper outer quadrant of the right breast, the axilla of the right breast and the retroareolar of the right breast were scanned. No solid or cystic masses are identified.. Previous cyst at the 1:00 position is not identified on the current study. Overall Assessment: Negative, BI-RAD 1 Management: Screening Mammogram of both breasts in 6 months. A clinical breast exam by your physician is recommended on an annual basis and results should be correlated with mammographic findings. This exam should not preclude additional follow-up of suspicious palpable abnormalities. Results were given to the patient verbally at the time of exam. [facility], , 07/02/2024 10:08 AM. Electronically signed and approved by: Jerry Bobo D.O. Radiologis
--- NOTE | 2024-07-02 10:38 | XR ---
EXAMINATION TYPE: XR foot complete LT DATE OF EXAM: 07/02/2024 10:32 AM INDICATION: Patient age:Female; 69 years old; Reason for study: [id number] PAIN IN LEFT FOOT; [facility]. COMPARISON: None TECHNIQUE: The left foot was examined in the AP, oblique, and lateral projections. FINDINGS: No evidence of any acute osseous pathology. No evidence of soft tissue swelling. Joints are preserve d. Small posterior calcaneal enthesophyte. Incidental os peroneum. IMPRESSION: No evidence of acute fracture. [facility], , 07/02/2024 10:36 AM
== END | disposition home or self-care (01) ==
LOC: RADUSWWP 09:25
PROVIDERS: ATTEND Family Medicine
DX: R92.8 Other abnormal and inconclusive findings on diagnostic imaging of breast (principal); M79.672 Pain in left foot; Z78.0 Asymptomatic menopausal state; Z80.3 Family history of malignant neoplasm of breast